=== PATIENT | female | born 1950 | race Caucasian/White ===

== ENCOUNTER 2024-12-26 09:22 | Emergency (ER) | payer MEDICARE, SELFPAY ==
--- NOTE | 2024-12-26 09:28 | ED_ITS ---
HPI - Extremity Problem General Chief complaint: Extremity Problem,Nontraumatic Stated complaint: LT Leg Problem Time Seen by Provider: 12/26/24 09:25 Source: patient Mode of arrival: ambulatory Limitations: no limitations History of Present Illness HPI Narrative: Lucinda is a 74-year-old female patient presenting to the clinic today with complaints of possible cellulitis to the left anterior knee. She reports she is having mild discomfort, redness, and swelling with erythema to the left knee reports that she was possibly bitten by an insect 2-3 days ago. [place] a sting in her knee but did not see a insect and then that knee began to swell shortly after the sting/bite. Denies any fevers, chills, body aches. Denies pain with walking or pain within the knee joint. Has full range of motion. Has been trying a topical gel without relief Related Data Allergies Allergy/AdvReac Type Severity Reaction Status Date / Time No Known Allergies Allergy Verified 12/26/24 09:24 Review of Systems Review of Systems: Pertinent positives per HPI. Patient denies any fever, chills, headache, visual changes, dizziness, cough, runny nose, sore throat, shortness of breath, chest pain, palpitations, nausea, vomiting, diarrhea, constipation, abdominal pain, or any urinary issues. PMFSH Comments At the time of my signature, I reviewed and agree with the nursing past medical, surgical, social, and family history. There is no relevant family history pertinent to the patient complaint. Exam Narrative: General: Well-developed, well nourished, in no apparent distress Head: Normocephalic, atraumatic. Cardio: Regular rate and rhythm, s1 and s2 normal, no murmur appreciated. Resp: Clear to auscultation bilaterally, no rhonchi, rales, wheezing or rubs. Musculoskeletal: No deformity, redness, swelling, and erythema to the left anterior knee with some swelling into the left lateral leg, nontender to palpation, no palpable abscess, or induration, grossly normal range of motion, muscle strength strong and equal, peripheral pulse strong, no cyanosis, normal gait and station Course Course Emergency Course: Portions of this record may have been created with voice recognition software. Level of Care: Express Care Visit Vital Signs Vital signs: Vital Signs Temperature 36.7 C 12/26/24 09:31 Pulse Rate 106 H 12/26/24 09:31 Respiratory Rate 16 12/26/24 09:31 Blood Pressure 126/76 12/26/24 09:31 Pulse Oximetry 94 12/26/24 09:31 Oxygen Delivery Room Air 12/26/24 09:31 Temperature 36.7 C 12/26/24 09:31 Pulse Rate 106 H 12/26/24 09:31 Respiratory Rate 16 12/26/24 09:31 Blood Pressure 126/76 12/26/24 09:31 Pulse Oximetry 97 12/26/24 09:41 Oxygen Delivery Room Air 12/26/24 09:41 Vital signs reviewed MDM - Extremity (Nontraumatic) MDM Narrative Medical decision making narrative: At the time of visit patient is resting comfortably on the exam table. Patient appears to be nontoxic. Complaints of possible cellulitis to the left anterior knee. She reports she is having mild discomfort, redness, and swelling with erythema to the left knee reports that she was possibly bitten by an insect 2-3 days ago. [place] a sting in her knee but did not see a insect and then that knee began to swell shortly after the sting/bite. Denies any fevers, chills, body aches. Denies pain with walking or pain within the knee joint. Has full range of motion. Has been trying a topical gel without relief. On exam patient has redness, swelling, and erythema to the left anterior knee with some swelling to the left lateral leg. Nontender to palpation, no palpable abscess, or induration. Denies any itching. Plan: I suspect patient has an infected insect bite to the anterior left knee. Prescription for clindamycin was sent to the pharmacy. Supportive measures were discussed with the patient and they voiced understanding discharge instructions and agrees to treatment plan. Return precautions reviewed Differential Diagnosis Differential diagnosis: Likely cellulitis, superficial thrombophlebitis, lower extremity edema, deep vein thrombosis of lower extremity and other (Skin infection, insect bite/sting) Discharge Plan Discharge Clinical Impression: Infected insect bite of knee Qualifiers: Encounter type: initial encounter Laterality: left Qualified Code(s): S80.262A - Insect bite (nonvenomous), left knee, initial encounter Patient Disposition: Home Condition: Stable Instructions: Antibiotic Form, Insect Bite or Sting (ED) Additional Instructions: Take clindamycin as prescribed Take a daily probiotic 2 hours before 2 hours after 1 the antibiotic doses. Increase fluids and stay well hydrated May apply a ice pack to the affected area to help alleviate pain and swelling, May take Tylenol/Motrin per bottle directions as needed for pain or fever Follow-up with your PCP in 3-5 days if symptoms persist Go to the emergency room if symptoms worsen-fever not controlled by Tylenol or Motrin, pain in your knee joint, increase in swelling, increase in pain, increase in redness, purulent discharge, or streaking. Patient Language: Georgian Prescriptions: New clindamycin HCl [Cleocin HCl] 300 mg capsule 300 mg PO Q8H 7 Days Qty: 21 0RF Follow-up/Referrals: PHYSICIAN,INSURANCE UNDERWRITING ASSISTANT [Primary Care Provider, Internal Medicine] Time of Disposition: 09:40 Quality NIHSS Nursing Documentation ED NIHSS nursing documentation: reviewed/agree
[2024-12-26 09:31] VITALS: BP 126/76; PULSE 106; RESP 16; TEMP 36.7; O2SAT 94
[2024-12-26 09:41] VITALS: O2SAT 97
== END 2024-12-26 09:42 | disposition home or self-care (01) ==
PROVIDERS: Emergency Provider Nurse Practitioner Family
DX: S80.262A Insect bite (nonvenomous), left knee, initial encounter (principal); L08.9 Local infection of the skin and subcutaneous tissue, unspecified; W57.XXXA Bitten or stung by nonvenomous insect and other nonvenomous arthropods, initial encounter; M19.90 Unspecified osteoarthritis, unspecified site
CPT/HCPCS: 99203; G0463